=== PATIENT | female | born 1950 | race Caucasian/White ===

== ENCOUNTER → 2017-05-02 | Outpatient (CLI) | payer OTHER ==
[~2017-05-02] MED LIST: ASPIR 8181 M1 PO; CARDIZEM CD,CA180 MG PO; COENZYME Q10200 M2 PO; ELIQUIS5 MG PO; FENOFIBRATE134 M1 PO; FERROUS SULFAT325 MG PO; HYDROCHLOROTH12.5 M3 PO; LEVOTHYROXINE125 MCG PO; LOPRESSOR25 MG PO; PIOGLITAZONE HC45 MG PO; RABEPRAZOLE SOD20 MG PO; TELMISARTAN40 MG PO; TRAMADOL HCL50 MG PO; ZETIA10 MG PO
== END | disposition home or self-care (01) ==
DX: M17.11 Unilateral primary osteoarthritis, right knee (principal); R26.2 Difficulty in walking, not elsewhere classified; M25.561 Pain in right knee; M25.661 Stiffness of right knee, not elsewhere classified; M62.81 Muscle weakness (generalized)
CPT/HCPCS: 97110 GP; 97150 GO; 97161 GP; 97165 GO; G8978 GP; G8979 GP; G8980 GP; G8987 GO; G8988 GO; G8989 GO

== ENCOUNTER 2017-05-22 22:06 | Inpatient (IN) | payer OTHER ==
[~2017-05-22] VITALS: Ht 154.9 cm; Wt 99.7 kg
[~2017-05-22 22:06] MED LIST changes: +TRULICITY0.75 MG/0. SC; +TYLENOL REGULA325 MG PO
[2017-05-23 05:52] VITALS: BP 129/89
[2017-05-23 06:16] LABS: POINT-OF-CARE METER ID UU13113694
[2017-05-23 06:40] LABS: HEMATOCRIT 44.1 % (36.0-46.0); MCH 29.2 PG (29.0-34.0); MCHC 32.7 G/DL (30.0-36.0); MCV 89.5 FL (83-99); MEAN PLAT.VOLUME 9.3 uM^3 (9.5-12.4); PLATELET COUNT 231 K/uL (156-360); RBC DIS.WIDTH-CV 12.6 % (11.8-14.6); RBC DIS.WIDTH-SD 41.2 % (39-53); RED BLOOD COUNT 4.93 M/uL (3.80-5.20); WHITE BLOOD COUNT 6.7 K/uL (4.1-10.2)
[2017-05-23 06:52] LABS: INTER. NORMALIZED RATIO 1.1; PROTHROMBIN TIME 11.9 SEC (10.2-12.9)
[2017-05-23 06:55] LABS: PTT 33.9 SEC (25-37)
[2017-05-23 09:44] LABS: POINT-OF-CARE METER ID UU13113675; POINT-OF-CARE USER ID ADMSLT55
[2017-05-23 10:12] LABS: HEMATOCRIT 42.7 % (36.0-46.0); MCH 29.8 PG (29.0-34.0); MCHC 32.8 G/DL (30.0-36.0); MCV 90.9 FL (83-99); MEAN PLAT.VOLUME 9.6 uM^3 (9.5-12.4); PLATELET COUNT 213 K/uL (156-360); RBC DIS.WIDTH-CV 12.7 % (11.8-14.6); RBC DIS.WIDTH-SD 42.2 % (39-53); WHITE BLOOD COUNT 8.5 K/uL (4.1-10.2)
[2017-05-23 10:22] VITALS: BP 143/77
[2017-05-23 11:19] LABS: POINT-OF-CARE METER ID UU14174215
[2017-05-23 16:09] VITALS: BP 182/85
[2017-05-23 16:27] LABS: POINT-OF-CARE METER ID UU14174215
[2017-05-23 20:15] VITALS: BP 151/72
[2017-05-23 21:45] LABS: POINT-OF-CARE METER ID UU14174215
[2017-05-23 23:55] VITALS: BP 141/76
[2017-05-24 04:26] VITALS: BP 141/84
[2017-05-24 05:46] LABS: HEMATOCRIT 42.1 % (36.0-46.0); MCV 89.4 FL (83-99)
[2017-05-24 06:10] LABS: ANION GAP 7 MEQ/L (2-14); CHLORIDE 103 MEQ/L (99-109); GFR ESTIMATE (CALCULATED) 47 mL/min/; GLUCOSE 146 mg/dL (70-99); POTASSIUM 4.5 MEQ/L (3.7-5.4); SAMPLE HEMOLYSIS CHECK 0; SAMPLE ICTERIC CHECK 0; SAMPLE LIPEMIA CHECK 0; SODIUM 136 MEQ/L (136-147); UREA NITROGEN (BUN) 19 mg/dL (9-23)
[2017-05-24 07:28] LABS: POINT-OF-CARE METER ID UU14174215
[2017-05-24 08:14] VITALS: BP 138/87
[2017-05-24 11:19] LABS: POINT-OF-CARE METER ID UU14174215
[2017-05-24 13:13] VITALS: BP 126/66
[2017-05-24 15:42] VITALS: BP 119/73
[2017-05-24 16:34] LABS: POINT-OF-CARE METER ID UU14174215
[2017-05-24 19:55] VITALS: BP 127/60
[2017-05-24 21:53] LABS: POINT-OF-CARE METER ID UU14174215
[2017-05-25 00:26] VITALS: BP 134/85
[2017-05-25 04:20] VITALS: BP 118/74
[2017-05-25 05:35] LABS: HEMATOCRIT 40.7 % (36.0-46.0); MCV 89.8 FL (83-99)
[2017-05-25 05:41] LABS: INTER. NORMALIZED RATIO 1.2; PROTHROMBIN TIME 12.7 SEC (10.2-12.9)
[2017-05-25 07:35] LABS: POINT-OF-CARE METER ID UU14174215
[2017-05-25 08:06] VITALS: BP 115/63
[2017-05-25] MEDS ORDERED: ENDOCET 5-3251 EACH PO (10:41)
[2017-05-25] MEDS ORDERED: COUMADIN1 MG PO (10:41)
[2017-05-25 11:39] LABS: POINT-OF-CARE METER ID UU14174215
[2017-05-25 12:07] VITALS: BP 124/58
== END 2017-05-25 15:10 | DRG 470 ==
LOC: ENRESERV 22:06 → 3WEST 05-23 05:28 → 2SOUTH 05-23 05:28 → 3WEST 05-23 10:07 → 2SOUTH 05-23 13:56 → 3WEST 05-25 15:10
PROVIDERS: Orthopaedic Surgery
PROC: 0SRC0J9 Replacement of Right Knee Joint with Synthetic Substitute, Cemented, Open Approach (ICD-10-PCS; principal; 2017-05-23)
DX: M17.11 Unilateral primary osteoarthritis, right knee (principal); Z68.41 Body mass index [BMI] 40.0-44.9, adult; E11.9 Type 2 diabetes mellitus without complications; I10 Essential (primary) hypertension; K21.9 Gastro-esophageal reflux disease without esophagitis; E78.5 Hyperlipidemia, unspecified; I48.91 Unspecified atrial fibrillation; E89.0 Postprocedural hypothyroidism; J45.909 Unspecified asthma, uncomplicated; Z90.710 Acquired absence of both cervix and uterus; Z96.652 Presence of left artificial knee joint; Z79.01 Long term (current) use of anticoagulants; Z79.84 Long term (current) use of oral hypoglycemic drugs; Z82.49 Family history of ischemic heart disease and other diseases of the circulatory system; Z80.8 Family history of malignant neoplasm of other organs or systems; Z80.3 Family history of malignant neoplasm of breast; Z83.3 Family history of diabetes mellitus
CPT/HCPCS: 73560; 80048; 82948; 85014; 85018; 85027; 85610; 85730; 94799; C1713; J0690; J1170; J1200; J1815; J2250; J2405; J3010; J7030; J7050